=== PATIENT | male | born 1970 | race Caucasian/White ===

== ENCOUNTER 2016-09-04 13:32 | Day surgery (SDC) | payer OTHER ==
[2006-03-28 15:25] VITALS: BP 133/85
[~2016-09-04] VITALS: Ht 165.1 cm; Wt 111.4 kg
[~2016-09-04 13:32] MED LIST: CIPRO 500MG TA500 MG PO; HYDROCODONE/APAP
[2016-09-04] MEDS ORDERED: NORCO 325 MG-7.1 TAB PO (14:00)
[2016-09-04 14:32] VITALS: BP 172/91; PULSE 63; TEMP 98
[2016-09-04 16:56] VITALS: TEMP 98.4
[2016-09-04 17:50] VITALS: BP 145/86; PULSE 74
== END 2016-09-04 17:37 | disposition home or self-care (01) ==
LOC: SDCO 13:32
DX: N20.1 Calculus of ureter (principal); I10 Essential (primary) hypertension; F17.210 Nicotine dependence, cigarettes, uncomplicated
CPT/HCPCS: C1769; C2617; J0690; J1100; J2405; J2704; J3010; J7120

== ENCOUNTER 2016-09-11 13:26 | Day surgery (SDC) | payer OTHER ==
[2006-03-28 15:25] VITALS: BP 133/85
[~2016-09-11] VITALS: Ht 165.1 cm; Wt 107.9 kg
[~2016-09-11 13:26] MED LIST changes: +NORCO 325 MG-7.1 TAB PO
[2016-09-11 14:06] VITALS: BP 178/93; PULSE 71; TEMP 98.1
[2016-09-11 17:22] VITALS: BP 197/98; PULSE 70; TEMP 99.4
== END 2016-09-11 18:10 | disposition left against medical advice (07) ==
LOC: SDCO 13:26 → SURG 17:40 → SDCO 18:10
DX: N20.1 Calculus of ureter (principal); I10 Essential (primary) hypertension; Z87.442 Personal history of urinary calculi
CPT/HCPCS: OP; C1769; C1894; C2617; J0690; J2704; J3010; J7120; Q9967

== ENCOUNTER 2016-11-18 09:53 | Observation (INO) | payer OTHER ==
[~2016-11-18] VITALS: Ht 165.1 cm; Wt 97.7 kg
[2016-11-18 11:03] VITALS: BP 147/95; PULSE 77
[2016-11-18] MEDS ORDERED: FLOMAX 0.40.4 MG/CAP PO (11:22)
[2016-11-18 13:34] VITALS: BP 154/77; PULSE 72; TEMP 98.7
[2016-11-18 17:44] VITALS: BP 154/93; PULSE 66; TEMP 98.7
[2016-11-19] MEDS ORDERED: SENOKOT S 50 MG1 TAB PO (13:37)
[2016-11-19] MEDS ORDERED: NORCO 325 MG-51 TAB PO (13:37)
[2016-11-19] MEDS ORDERED: PYRIDIUM 100MG100 MG PO (13:39)
== END 2016-11-18 18:38 | disposition home or self-care (01) ==
LOC: MEDICAL 09:53 → SURG 10:47
DX: N20.1 Calculus of ureter (principal); I10 Essential (primary) hypertension; Z87.442 Personal history of urinary calculi; N41.9 Inflammatory disease of prostate, unspecified; F17.210 Nicotine dependence, cigarettes, uncomplicated
CPT/HCPCS: G0378; G0379; J1885; J2270; J7030

== ENCOUNTER 2016-11-19 09:26 | Day surgery (SDC) | payer OTHER ==
[2006-03-28 15:25] VITALS: BP 133/85
[~2016-11-19] VITALS: Ht 165.1 cm; Wt 102.8 kg
[~2016-11-19 09:26] MED LIST changes: +FLOMAX 0.40.4 MG/CAP PO
[2016-11-19 09:42] VITALS: BP 155/88; PULSE 74; TEMP 98
[2016-11-19 13:00] VITALS: BP 151/84; PULSE 62; TEMP 97.9
[2016-11-19 13:15] VITALS: BP 145/80; PULSE 71
[2016-11-19 13:30] VITALS: BP 142/82; PULSE 68
[2016-11-19] MEDS ORDERED: NORCO 325 MG-51 TAB PO (13:37)
[2016-11-19] MEDS ORDERED: SENOKOT S 50 MG1 TAB PO (13:37)
[2016-11-19] MEDS ORDERED: PYRIDIUM 100MG100 MG PO (13:39)
[2016-11-19 15:23] VITALS: BP 120/55; PULSE 61; TEMP 98.6
== END 2016-11-19 13:55 | disposition home or self-care (01) ==
LOC: SDCO 09:26
DX: N20.2 Calculus of kidney with calculus of ureter (principal); I10 Essential (primary) hypertension; N41.9 Inflammatory disease of prostate, unspecified; F17.210 Nicotine dependence, cigarettes, uncomplicated; R31.0 Gross hematuria; Z87.442 Personal history of urinary calculi; Z80.9 Family history of malignant neoplasm, unspecified
CPT/HCPCS: C1769; C2617; J0690; J1100; J1885; J2405; J2704; J2765; J3010; J7030

== ENCOUNTER 2016-12-01 12:01 | Day surgery (SDC) | payer OTHER ==
[2006-03-28 15:25] VITALS: BP 133/85
[~2016-12-01] VITALS: Ht 165.1 cm; Wt 99.5 kg
[~2016-12-01 12:01] MED LIST changes: +NORCO 325 MG-51 TAB PO; +PYRIDIUM 100MG100 MG PO; +SENOKOT S 50 MG1 TAB PO
[2016-12-01 12:54] VITALS: BP 148/79; PULSE 92; TEMP 97.9
[2016-12-01] MEDS ORDERED: TORADOL 10MG TA10 MG PO (13:29)
[2016-12-01] MEDS ORDERED: PRINIVIL20 MG PO (13:41)
[2016-12-01 15:35] VITALS: BP 118/59; PULSE 80; TEMP 98.1
[2016-12-01 15:45] VITALS: BP 109/55; PULSE 81
[2016-12-01 16:00] VITALS: BP 117/67; PULSE 85
[2016-12-01 16:05] VITALS: TEMP 99.3
[2016-12-01 16:15] VITALS: BP 134/80; PULSE 87
[2016-12-01] MEDS ORDERED: TYLENOL W/COD1 UDTAB PO (16:33)
== END 2016-12-01 17:08 | disposition home or self-care (01) ==
LOC: SDCO 12:01
DX: N20.2 Calculus of kidney with calculus of ureter (principal); Z87.442 Personal history of urinary calculi; I10 Essential (primary) hypertension; N41.9 Inflammatory disease of prostate, unspecified; F17.210 Nicotine dependence, cigarettes, uncomplicated; Z80.9 Family history of malignant neoplasm, unspecified
CPT/HCPCS: C1769; C2617; J0690; J1100; J1885; J2405; J2704; J3010; J7030; J7120; Q9967

== ENCOUNTER 2016-12-06 10:05 | Inpatient (IN) | payer OTHER ==
[2016-12-06] VITALS (10 sets, daily range): BP systolic 123–147; BP diastolic 55–81; PULSE 82–96; TEMP 97.6–98.4
[~2016-12-06] VITALS: Ht 165.1 cm; Wt 99.1 kg
[~2016-12-06 10:05] MED LIST changes: +PRINIVIL20 MG PO; +TORADOL 10MG TA10 MG PO; +TYLENOL W/COD1 UDTAB PO
[2016-12-06] MEDS ORDERED: ULTRAM 50MG TAB50 MG PO (10:40)
[2016-12-07 02:00] VITALS: BP 120/56; PULSE 97; TEMP 98
[2016-12-07 04:22] VITALS: BP 136/66; PULSE 76; TEMP 97.9
[2016-12-07 06:22] LABS: BASO % 0.2 % (0.0-2.0); GRAN # 16.2 (1.4-6.5); GRAN % 90.3 % (42.2-75.2); HEMATOCRIT 39.7 % (42.0-52.0); HEMOGLOBIN 13.4 g/dl (13.5-18.0); LYMPH # 0.9 (1.2-3.4); LYMPH % 5.3 % (20.0-51.0); MEAN CELL VOLUME 93 fl (80.0-100.0); MEAN CORPUSCULAR HEMOGLOBIN 32 pg (27.0-31.0); MEAN CORPUSCULAR HGB CONC 34 g/dl (33.0-37.0); MEAN PLATELET VOLUME 9.7 fl (7.4-10.4); MONO # 0.6 (0.1-0.6); MONO % 3.5 % (1.7-9.3); PLATELET COUNT 315 K/mm3 (130-400); RED BLOOD COUNT 4.25 M/mm3 (4.20-5.60); REDCELL DISTRIBUTION WIDTH-CV 13.4 % (11.5-14.5); WHITE BLOOD COUNT 17.9 K/mm3 (4.8-10.8)
[2016-12-07 06:33] LABS: CALCIUM 8.5 mg/dL (8.4-10.2); CREATININE, serum 0.77 mg/dL (0.66-1.25); POTASSIUM 4.6 mmol/L (3.4-5.0)
[2016-12-07 10:29] VITALS: BP 147/64; PULSE 84; TEMP 98
== END 2016-12-07 11:40 | disposition left against medical advice (07) | DRG 690 ==
LOC: JCC 10:05
PROVIDERS: Family Medicine; Urology
PROC: 0TP98DZ Removal of Intraluminal Device from Ureter, Via Natural or Artificial Opening Endoscopic (ICD-10-PCS; 2016-12-06)
PROC: 0T768DZ Dilation of Right Ureter with Intraluminal Device, Via Natural or Artificial Opening Endoscopic (ICD-10-PCS; principal; 2016-12-06 16:00)
DX: N13.6 Pyonephrosis (principal); I10 Essential (primary) hypertension; F17.210 Nicotine dependence, cigarettes, uncomplicated; Z87.442 Personal history of urinary calculi
CPT/HCPCS: 99222-AI; 99238; C1769; C2617; J0690; J1100; J1170; J1885; J1956; J2405; J2704; J3010; J7030

== ENCOUNTER 2017-05-14 10:36 | Day surgery (SDC) | payer OTHER ==
[2017-05-14] VITALS (10 sets, daily range): BP systolic 95–158; BP diastolic 45–82; PULSE 71–85; TEMP 98
[~2017-05-14] VITALS: Ht 165.1 cm; Wt 105.3 kg
[~2017-05-14 10:36] MED LIST changes: +ULTRAM 50MG TAB50 MG PO
== END 2017-05-14 19:32 | disposition home or self-care (01) ==
LOC: JCC 10:36 → SDCO 10:36 → JCC 10:37 → SDCO 11:17 → JCC 19:32
DX: N20.2 Calculus of kidney with calculus of ureter (principal); K21.9 Gastro-esophageal reflux disease without esophagitis; I10 Essential (primary) hypertension; F17.210 Nicotine dependence, cigarettes, uncomplicated; E66.01 Morbid (severe) obesity due to excess calories; Z68.35 Body mass index [BMI] 35.0-35.9, adult; Z87.442 Personal history of urinary calculi
CPT/HCPCS: C1769; C2617; G0378; G0379; J0360; J0690; J1100; J1170; J1885; J2270; J2405; J2704; J3010; J7030; J7120; Q9967

== ENCOUNTER 2018-08-31 10:07 | Day surgery (SDC) | payer OTHER ==
[2006-03-28 15:25] VITALS: BP 133/85
[~2018-08-31] VITALS: Ht 165.1 cm; Wt 126.8 kg
[2018-08-31 10:14] VITALS: BP 151/82; PULSE 106; TEMP 97.5
--- NOTE | 2018-08-31 11:46 | NUR ---
CALLED TIFFANIE STOKES CRNA WITH REPORT. PT TO SURGERY AT THIS TIME.
[2018-08-31 11:58] VITALS: BP 151/82; PULSE 106; TEMP 97.5
--- NOTE | 2018-08-31 12:45 | NUR ---
PT TO ROOM 344 @ 1100 NEW ORDERS RECIEVED, HOME MEDS VERIFIED PT TO SURGERY PER BED @ 1140 CONSENT SIGNED ON CHART. PT TO SURGERY PER BED BY KIERSTEN. IV TO RAC 20 GA. IV FLUIDS PER GRAVITY. PT IS A/O X3. ON DOSE OF MORPHINE GIVEN.
[2018-08-31 13:11] VITALS: TEMP 97.7
[2018-08-31 14:27] VITALS: BP 142/74; PULSE 109
--- NOTE | 2018-08-31 15:17 | NUR ---
pt discharged per Dr. Gongora. Patient left ambulatory. Patient escorted to front by staff.
== END 2018-08-31 15:00 | disposition home or self-care (01) ==
LOC: SURG 10:07 → SDCO 10:07 → EDSTATUS 12:00 → SURG 15:00 → SDCO 15:00
DX: N20.2 Calculus of kidney with calculus of ureter (principal); K21.9 Gastro-esophageal reflux disease without esophagitis; I10 Essential (primary) hypertension; Z88.1 Allergy status to other antibiotic agents; F17.210 Nicotine dependence, cigarettes, uncomplicated; Z80.9 Family history of malignant neoplasm, unspecified; G47.33 Obstructive sleep apnea (adult) (pediatric)
CPT/HCPCS: C1769; C2617; J0690; J2270; J2405; J2704; J3010; J7030; Q9967

== ENCOUNTER 2018-09-07 07:09 | Day surgery (SDC) | payer OTHER ==
[2006-03-28 15:25] VITALS: BP 133/85
[~2018-09-07] VITALS: Ht 165.1 cm; Wt 124.5 kg
[2018-09-07] MEDS ORDERED: NORCO 325 MG-51 TAB PO (08:15)
[2018-09-07 08:35] VITALS: BP 177/90; PULSE 83; TEMP 98.8
[2018-09-07] MEDS ORDERED: FLOMAX 0.40.4 MG/CAP PO (08:40)
[2018-09-07 12:00] VITALS: BP 151/87; PULSE 74; TEMP 98
--- NOTE | 2018-09-07 12:00 | NUR ---
Pt returned via cart to [facility]. Pt drowsy but easily arousable. Facial grimace and voicing discomfort. VSS-BP remains elevated. brought back to room to visit. Pt requested urinal and able to void dark red urine without difficulty. Given pudding and juice per request. Side rails up with call light placed in reach. Denies needs at this time.
[2018-09-07 12:09] VITALS: TEMP 97.7
[2018-09-07 12:15] VITALS: BP 148/91; PULSE 74
--- NOTE | 2018-09-07 12:17 | NUR ---
Pt requested "IV pain medication" stating his pain is "so bad". Given ordered pain medication per JUL documentation. Pt relaxed and voiced pain relief with administration.
[2018-09-07 12:30] VITALS: BP 155/99; PULSE 97
[2018-09-07 12:45] VITALS: BP 163/92; PULSE 70
--- NOTE | 2018-09-07 13:55 | NUR ---
Pt verbalized pain relief, though reports discomfort with ambulation with dressing. Pt voided. Tolerated pudding and juice. Discharge teaching completed, pt and spouse verbalized understanding. Pt taken via wheelchair to private vehicle for to drive pt home.
== END 2018-09-07 13:55 | disposition home or self-care (01) ==
LOC: SDCO 07:09
DX: N20.0 Calculus of kidney (principal); K21.9 Gastro-esophageal reflux disease without esophagitis; I11.0 Hypertensive heart disease with heart failure; F17.210 Nicotine dependence, cigarettes, uncomplicated; I10 Essential (primary) hypertension; G47.33 Obstructive sleep apnea (adult) (pediatric); E66.9 Obesity, unspecified; Z68.42 Body mass index [BMI] 45.0-49.9, adult; Z88.1 Allergy status to other antibiotic agents; Z80.9 Family history of malignant neoplasm, unspecified; Z88.2 Allergy status to sulfonamides; Z88.6 Allergy status to analgesic agent; Z91.018 Allergy to other foods
CPT/HCPCS: C1758; C1769; C2617; J0690; J1100; J2270; J2405; J2704; J3010; J7120

== ENCOUNTER 2019-10-06 06:43 | Day surgery (SDC) | payer OTHER ==
--- NOTE | 2019-10-06 07:00 | NUR ---
Patient arrived via EMS. Oriented to room. INT to left hand. Denies pain or further needs at this time.
--- NOTE | 2019-10-06 07:15 | NUR ---
Dr. Camargo in to see patient.
--- NOTE | 2019-10-06 07:28 | NUR ---
Per Dr. Camargo discharge patient. Office will contact to schedule procedure. Prescription for norco given to patient. INT to left hand discontinued, catheter tip intact. Patient ambulated out with surgical staff.
== END 2019-10-06 07:28 | disposition home or self-care (01) ==
LOC: JCC 06:43 → SDCO 06:43 → JCC 07:28 → EDSTATUS 14:53
DX: N20.1 Calculus of ureter (principal)

== ENCOUNTER 2019-11-22 12:50 | Day surgery (SDC) | payer OTHER ==
[2006-03-28 15:25] VITALS: BP 133/85
[~2019-11-22] VITALS: Ht 165.1 cm; Wt 126.2 kg
[2019-11-22] MEDS ORDERED: ROXICODONE 55 MG/TAB PO ×2 (13:50→16:27)
[2019-11-22 13:52] VITALS: BP 196/92; PULSE 74; TEMP 98.3
[2019-11-22 16:15] VITALS: BP 156/88; PULSE 76; TEMP 98.9
--- NOTE | 2019-11-22 16:15 | NUR ---
The patient arrived back to [facility] from the recovery room at this time. The patient appears alert and oriented and denies any pain or nausea at this time. Post operative vital signs were started at this time. The patient requests to ambulate to the bathroom and did so with the stand by assistance of two nurses and appeared to tolerate the activity well. Call light is within reach. Will continue to monitor the patient.
[2019-11-22] MEDS ORDERED: FLOMAX 0.40.4 MG/CAP (16:28)
[2019-11-22 16:30] VITALS: BP 145/82; PULSE 81
--- NOTE | 2019-11-22 16:30 | NUR ---
The patient agrees to try some applesauce and grape juice at this time. The patient's vital signs appear stable. Call light remains within reach. Will continue to monitor the patient.
[2019-11-22 16:45] VITALS: BP 154/85; PULSE 80
--- NOTE | 2019-11-22 16:45 | NUR ---
The patient was up to the bathroom again with the stand by assistance of one nurse and voided with some discomfort which he states is "due to the stent". The patient is to be given a PRN dose of Roxicodone 5 mg to help with his discomfort. Will continue to monitor the patient.
[2019-11-22 16:58] VITALS: BP 152/84; PULSE 81
--- NOTE | 2019-11-22 17:00 | NUR ---
Discharge instructions were reviewed with the patient at this time. He verbalized understanding and has no questions for the nurse at this time. The patient's IV to his left hand was removed and a pressure dressing was applied to the site.
--- NOTE | 2019-11-22 17:15 | NUR ---
The patient refused to use a wheelchair and ambulated out independently using a steady gait and appeared to tolerate the activity well. The patient's belongings and discharge paperwork were sent with him. The patient's daughter is present to drive him home.
== END 2019-11-22 17:15 | disposition home or self-care (01) ==
LOC: SDCO 12:50
DX: N20.2 Calculus of kidney with calculus of ureter (principal); K21.9 Gastro-esophageal reflux disease without esophagitis; I10 Essential (primary) hypertension; Z88.1 Allergy status to other antibiotic agents; Z88.8 Allergy status to other drugs, medicaments and biological substances; Z88.6 Allergy status to analgesic agent; E66.01 Morbid (severe) obesity due to excess calories; Z68.42 Body mass index [BMI] 45.0-49.9, adult
CPT/HCPCS: C1769; C2617; J0690; J1100; J1885; J2250; J2405; J2704; J3010; J7120; Q9967

== ENCOUNTER 2021-01-09 14:34 | Day surgery (SDC) | payer OTHER ==
[2006-03-28 15:25] VITALS: BP 133/85
[~2021-01-09] VITALS: Ht 165.1 cm; Wt 120.9 kg
[2021-01-09] VITALS (7 sets, daily range): BP systolic 140–175; BP diastolic 83–108; PULSE 69–90; TEMP 97.6–98.1
[~2021-01-09 14:34] MED LIST changes: +FLOMAX 0.40.4 MG/CAP; +ROXICODONE 55 MG/TAB PO
--- NOTE | 2021-01-09 17:40 | NUR ---
Pt returns to [facility] from PACU, drowsy but awakens easily. VSS. [place] brought to bedside. Pt up to the bathroom and ambulates easily, voids without difficulty, reports urine is clear, pink.
--- NOTE | 2021-01-09 17:55 | NUR ---
Pt's O2 sats 90% on room air, he is still sleepy, O2/1L/NC applied. Will continue to monitor. Pt tolerates pudding and juice well. Pain noted to left side. Dr. Camargo notified and orders for [place] 7.5 mg PO to be given now. Call light in reach.
--- NOTE | 2021-01-09 18:25 | NUR ---
Pt's blood pressure elevated and pt has been up to void x2 with minimal bleeding to urine. Marylou Jalloh CRNA notified and okay with B/P, withing pre-op. Pain medication given. Call light in reach.
--- NOTE | 2021-01-09 18:45 | NUR ---
Pt on room air and sats maintaining >94%. Pt awake and alert now and feeling better, wanting to go home. VSS. Discharge instructions given to pt and his and pt dressed and taken out via wheelchair to private car at 1855.
== END 2021-01-09 18:55 | disposition home or self-care (01) ==
LOC: SDCO 14:34
DX: N20.1 Calculus of ureter (principal); K21.9 Gastro-esophageal reflux disease without esophagitis; I10 Essential (primary) hypertension; F17.210 Nicotine dependence, cigarettes, uncomplicated; G47.33 Obstructive sleep apnea (adult) (pediatric)
CPT/HCPCS: C1769; C2617; J0690; J2405; J2704; J3010; J7120; Q9967